=== PATIENT | female | born 1940 | race Caucasian/White ===

== ENCOUNTER 2020-08-03 11:17 | Inpatient (IN) | payer MEDICARE, BC ==
[2020-08-03] MEDS: Acetaminophen 325 MG TAB PO SCH ×2 (14:12→21:14)
[2020-08-03] MEDS: Ibuprofen 200 MG TAB PO SCH ×2 (14:13→21:16)
[2020-08-03] MEDS: traMADol HCl 50 MG TAB PO SCH ×2 (14:13→21:14)
[2020-08-03] MEDS ORDERED: Gabapentin 100 MG CAP PO SCH ×3 (15:00→21:00)
[2020-08-03] MEDS ORDERED: traMADol HCl 50 MG TAB PO SCH (18:00)
[2020-08-03] MEDS: DULoxetine 30 MG CAP PO SCH (21:16)
[2020-08-03] MEDS: Nitrofurantoin Monohyd/M-Cryst 100 MG CAP PO SCH (21:16)
[2020-08-03] MEDS: Aspirin 81 mg Enteric Coated Tablet PO SCH (21:16)
[2020-08-03] MEDS: Melatonin 3 MG TAB PO PRN (22:13)
[2020-08-04] MEDS: Acetaminophen 325 MG TAB PO SCH ×4 (02:08→20:19)
[2020-08-04] MEDS: traMADol HCl 50 MG TAB PO SCH ×4 (02:09→20:19)
[2020-08-04] MEDS: Levothyroxine Sodium 125 MCG TAB PO SCH (06:29)
[2020-08-04] MEDS: Ibuprofen 200 MG TAB PO SCH ×3 (06:29→21:18)
[2020-08-04] MEDS: Aspirin 81 mg Enteric Coated Tablet PO SCH ×2 (08:14→20:20)
[2020-08-04] MEDS: Nitrofurantoin Monohyd/M-Cryst 100 MG CAP PO SCH ×2 (08:14→20:20)
[2020-08-04] MEDS: Polyethylene Glycol 3350 17 GM Packet PO SCH (08:16)
[2020-08-04] MEDS: Amlodipine 5 MG TAB PO SCH (10:56)
[2020-08-04] MEDS: Lisinopril 20 MG TAB PO SCH (10:56)
[2020-08-04] MEDS: DULoxetine 30 MG CAP PO SCH (20:20)
[2020-08-04] MEDS: Melatonin 3 MG TAB PO PRN (20:20)
[2020-08-05] MEDS: traMADol HCl 50 MG TAB PO SCH ×4 (02:05→20:47)
[2020-08-05] MEDS: Acetaminophen 325 MG TAB PO SCH ×5 (02:05→20:46)
[2020-08-05] MEDS: Levothyroxine Sodium 125 MCG TAB PO SCH (05:14)
[2020-08-05] MEDS: Ibuprofen 200 MG TAB PO SCH ×4 (05:14→21:07)
[2020-08-05] MEDS: Aspirin 81 mg Enteric Coated Tablet PO SCH ×2 (08:33→20:47)
[2020-08-05] MEDS: Lisinopril 20 MG TAB PO SCH ×2 (08:34→11:17)
[2020-08-05] MEDS: Nitrofurantoin Monohyd/M-Cryst 100 MG CAP PO SCH ×2 (08:34→20:48)
[2020-08-05] MEDS: Amlodipine 5 MG TAB PO SCH ×2 (08:34→11:18)
[2020-08-05] MEDS: Polyethylene Glycol 3350 17 GM Packet PO SCH (08:36)
[2020-08-05] MEDS ORDERED: Senokot S 8.6-50 MG TAB PO SCH ×2 (13:15→21:00)
[2020-08-05] MEDS ORDERED: Ondansetron ODT 4 MG TAB PO PRN (13:41)
[2020-08-05] MEDS ORDERED: Bisacodyl 10 MG SUPP PR PRN (13:41)
[2020-08-05] MEDS: DULoxetine 30 MG CAP PO SCH (20:48)
[2020-08-05] MEDS: Docusate 100 MG CAP PO SCH (20:48)
[2020-08-05] MEDS: Melatonin 3 MG TAB PO PRN (20:50)
[2020-08-06] MEDS: Acetaminophen 325 MG TAB PO SCH ×4 (03:35→20:00)
[2020-08-06] MEDS: traMADol HCl 50 MG TAB PO SCH ×4 (03:36→19:58)
[2020-08-06] MEDS: Ibuprofen 200 MG TAB PO SCH ×3 (05:16→21:37)
[2020-08-06] MEDS: Levothyroxine Sodium 125 MCG TAB PO SCH (05:17)
[2020-08-06] MEDS: Polyethylene Glycol 3350 17 GM Packet PO SCH (08:51)
[2020-08-06] MEDS: Lisinopril 20 MG TAB PO SCH (08:52)
[2020-08-06] MEDS: Docusate 100 MG CAP PO SCH ×2 (08:52→20:01)
[2020-08-06] MEDS: Nitrofurantoin Monohyd/M-Cryst 100 MG CAP PO SCH (08:52)
[2020-08-06] MEDS: Amlodipine 5 MG TAB PO SCH (08:52)
[2020-08-06] MEDS: Aspirin 81 mg Enteric Coated Tablet PO SCH ×2 (08:53→20:02)
[2020-08-06] MEDS: DULoxetine 30 MG CAP PO SCH (20:01)
[2020-08-07] MEDS: Acetaminophen 325 MG TAB PO SCH ×4 (04:32→21:34)
[2020-08-07] MEDS: traMADol HCl 50 MG TAB PO SCH ×4 (04:33→21:34)
[2020-08-07] MEDS: Ibuprofen 200 MG TAB PO SCH ×3 (05:21→21:29)
[2020-08-07] MEDS: Levothyroxine Sodium 125 MCG TAB PO SCH (05:23)
[2020-08-07] MEDS: Lisinopril 20 MG TAB PO SCH (09:37)
[2020-08-07] MEDS: Polyethylene Glycol 3350 17 GM Packet PO SCH (09:37)
[2020-08-07] MEDS: Aspirin 81 mg Enteric Coated Tablet PO SCH ×2 (09:37→22:27)
[2020-08-07] MEDS: Docusate 100 MG CAP PO SCH ×3 (09:37→22:27)
[2020-08-07] MEDS: Amlodipine 5 MG TAB PO SCH (09:38)
[2020-08-07] MEDS ORDERED: Ondansetron ODT 4 MG TAB PO PRN (21:11)
[2020-08-07] MEDS ORDERED: Bisacodyl 10 MG SUPP PR PRN (21:12)
[2020-08-07] MEDS: DULoxetine 30 MG CAP PO SCH ×2 (21:27→22:27)
[2020-08-07] MEDS ORDERED: traMADol HCl 50 MG TAB PO SCH (21:30)
[2020-08-07] MEDS ORDERED: Acetaminophen 325 MG TAB PO SCH (21:30)
[2020-08-07] MEDS ORDERED: Aspirin 81 mg Enteric Coated Tablet PO SCH (22:45)
[2020-08-08] MEDS: Acetaminophen 325 MG TAB PO SCH ×4 (02:09→19:39)
[2020-08-08] MEDS: traMADol HCl 50 MG TAB PO SCH ×4 (02:10→19:37)
[2020-08-08] MEDS: Ibuprofen 200 MG TAB PO SCH ×3 (05:11→22:05)
[2020-08-08] MEDS: Levothyroxine Sodium 125 MCG TAB PO SCH (05:12)
[2020-08-08 05:28] LABS: #Basophils 0.1 thou/uL (0.0-0.2); #Eosinphils 0.7 thou/uL (0.0-0.7); #Lymphocytes 2.3 thou/uL (1.20-3.40); #Monocytes 0.9 thou/uL (0.11-0.59); %Basophils 1.1 % (0.0-1.0); %Eosinophils 7.7 % (0.0-10.0); %Lymphocytes 25.6 % (21.0-51.0); %Monocytes 10.3 % (0.0-10.0); %Neutrophils 55.3 % (42.0-75.0); Hemoglobin 7.9 g/dL (12.0-16.0); Mean Corpuscular HGB CONC 31.5 g/dL (32.0-36.0); Mean Corpuscular Hemoglobin 28.1 pg (27.0-31.0); Mean Corpuscular Volume 89.3 fL (78.0-98.0); Mean Platelet Volume 5.9 fL (7.4-10.4); Platelet Count 336 thou/uL (130-400); RBC Distribution Width 14.5 % (11.5-14.5); Red Blood Cell (RBC) Count 2.83 mill/uL (4.20-5.40); White Blood Cell (WBC) Count 9.1 thou/uL (4.8-10.8)
[2020-08-08 05:54] LABS: Anion Gap 12 mmol/L (10-20); BUN (Urea Nitrogen) 20 mg/dL (9.8-20.1); Calc. Creatinine Clearance 41 mL/min (70-130); Carbon Dioxide 26 mmol/L (23-31); Chloride 102 mmol/L (98-107); Glucose 94 mg/dL (83-110); Potassium 4.1 mmol/L (3.5-5.1); Sodium 136 mmol/L (136-145)
[2020-08-08] MEDS ORDERED: Ferrous Sulfate 325 MG TAB PO SCH (08:00)
[2020-08-08] MEDS: Aspirin 81 mg Enteric Coated Tablet PO SCH ×2 (08:14→19:37)
[2020-08-08] MEDS: Polyethylene Glycol 3350 17 GM Packet PO SCH (08:14)
[2020-08-08] MEDS: Docusate 100 MG CAP PO SCH ×2 (08:14→19:37)
[2020-08-08] MEDS: Lisinopril 20 MG TAB PO SCH (08:14)
[2020-08-08] MEDS: Amlodipine 5 MG TAB PO SCH (08:14)
[2020-08-08] MEDS: Ferrous Sulfate 325 MG TAB PO SCH (16:49)
[2020-08-08] MEDS: DULoxetine 30 MG CAP PO SCH (19:38)
[2020-08-08] MEDS: Melatonin 3 MG TAB PO PRN (21:51)
[2020-08-09] MEDS: Acetaminophen 325 MG TAB PO SCH ×4 (02:10→20:00)
[2020-08-09] MEDS: traMADol HCl 50 MG TAB PO SCH ×4 (02:10→19:59)
[2020-08-09] MEDS: Ibuprofen 200 MG TAB PO SCH ×3 (05:25→22:01)
[2020-08-09] MEDS: Amlodipine 5 MG TAB PO SCH (09:39)
[2020-08-09] MEDS: Docusate 100 MG CAP PO SCH ×2 (09:39→20:00)
[2020-08-09] MEDS: Polyethylene Glycol 3350 17 GM Packet PO SCH (09:39)
[2020-08-09] MEDS: Aspirin 81 mg Enteric Coated Tablet PO SCH ×2 (09:39→20:00)
[2020-08-09] MEDS: Lisinopril 20 MG TAB PO SCH (09:40)
[2020-08-09] MEDS ORDERED: Ferrous Sulfate 325 MG TAB PO SCH (10:15)
[2020-08-09] MEDS: Ferrous Sulfate 325 MG TAB PO SCH ×2 (10:15→17:44)
[2020-08-09] MEDS: Levothyroxine Sodium 125 MCG TAB PO SCH (12:55)
[2020-08-09] MEDS: Melatonin 3 MG TAB PO PRN (19:59)
[2020-08-09] MEDS: DULoxetine 30 MG CAP PO SCH (20:00)
[2020-08-10] MEDS: traMADol HCl 50 MG TAB PO SCH ×4 (02:09→20:02)
[2020-08-10] MEDS: Acetaminophen 325 MG TAB PO SCH ×4 (02:10→20:03)
[2020-08-10] MEDS: Levothyroxine Sodium 125 MCG TAB PO SCH (05:17)
[2020-08-10] MEDS: Ibuprofen 200 MG TAB PO SCH ×3 (05:17→22:24)
[2020-08-10] MEDS: Polyethylene Glycol 3350 17 GM Packet PO SCH (08:29)
[2020-08-10] MEDS: Amlodipine 5 MG TAB PO SCH (08:29)
[2020-08-10] MEDS: Ferrous Sulfate 325 MG TAB PO SCH ×2 (08:31→17:08)
[2020-08-10] MEDS: Aspirin 81 mg Enteric Coated Tablet PO SCH ×2 (08:31→20:03)
[2020-08-10] MEDS: Docusate 100 MG CAP PO SCH ×2 (08:31→20:03)
[2020-08-10] MEDS: Lisinopril 20 MG TAB PO SCH (08:31)
[2020-08-10] MEDS: DULoxetine 30 MG CAP PO SCH (20:03)
[2020-08-10] MEDS: Melatonin 3 MG TAB PO PRN (20:03)
[2020-08-11] MEDS: Acetaminophen 325 MG TAB PO SCH ×4 (01:04→20:10)
[2020-08-11] MEDS: traMADol HCl 50 MG TAB PO SCH ×4 (01:05→20:10)
[2020-08-11] MEDS: Ibuprofen 200 MG TAB PO SCH ×3 (05:13→21:43)
[2020-08-11] MEDS: Levothyroxine Sodium 125 MCG TAB PO SCH (05:14)
[2020-08-11] MEDS: Polyethylene Glycol 3350 17 GM Packet PO SCH (08:30)
[2020-08-11] MEDS: Amlodipine 5 MG TAB PO SCH (08:31)
[2020-08-11] MEDS: Docusate 100 MG CAP PO SCH ×2 (08:31→20:10)
[2020-08-11] MEDS: Aspirin 81 mg Enteric Coated Tablet PO SCH ×2 (08:31→20:10)
[2020-08-11] MEDS: Ferrous Sulfate 325 MG TAB PO SCH ×2 (08:31→17:10)
[2020-08-11] MEDS: Lisinopril 20 MG TAB PO SCH (08:31)
[2020-08-11] MEDS: Melatonin 3 MG TAB PO PRN (20:10)
[2020-08-11] MEDS: DULoxetine 30 MG CAP PO SCH (20:11)
[2020-08-12] MEDS: Acetaminophen 325 MG TAB PO SCH ×2 (02:30→09:42)
[2020-08-12] MEDS: traMADol HCl 50 MG TAB PO SCH ×2 (02:31→09:41)
[2020-08-12] MEDS: Levothyroxine Sodium 125 MCG TAB PO SCH (05:36)
[2020-08-12] MEDS: Ibuprofen 200 MG TAB PO SCH (05:36)
[2020-08-12] MEDS: Ferrous Sulfate 325 MG TAB PO SCH ×2 (09:39→17:27)
[2020-08-12] MEDS: Amlodipine 5 MG TAB PO SCH (09:39)
[2020-08-12] MEDS: Aspirin 81 mg Enteric Coated Tablet PO SCH ×2 (09:39→20:54)
[2020-08-12] MEDS: Docusate 100 MG CAP PO SCH ×2 (09:40→20:55)
[2020-08-12] MEDS: Lisinopril 20 MG TAB PO SCH (09:40)
[2020-08-12] MEDS: Polyethylene Glycol 3350 17 GM Packet PO SCH (09:40)
[2020-08-12] MEDS ORDERED: Acetaminophen 325 MG TAB PO PRN (10:11)
[2020-08-12] MEDS: DULoxetine 30 MG CAP PO SCH (20:55)
[2020-08-12] MEDS: Melatonin 3 MG TAB PO PRN (20:55)
[2020-08-12] MEDS: Ibuprofen 200 MG TAB PO PRN (21:56)
[2020-08-13] MEDS: Levothyroxine Sodium 125 MCG TAB PO SCH (05:28)
[2020-08-13] MEDS: Lisinopril 5 MG TAB PO SCH (08:54)
[2020-08-13] MEDS: Polyethylene Glycol 3350 17 GM Packet PO SCH (08:54)
[2020-08-13] MEDS: Ferrous Sulfate 325 MG TAB PO SCH ×2 (08:54→17:10)
[2020-08-13] MEDS: Amlodipine 5 MG TAB PO SCH (08:54)
[2020-08-13] MEDS: Docusate 100 MG CAP PO SCH ×2 (08:54→20:51)
[2020-08-13] MEDS: Aspirin 81 mg Enteric Coated Tablet PO SCH ×2 (08:54→20:51)
[2020-08-13] MEDS: traMADol HCl 50 MG TAB PO PRN (14:34)
[2020-08-13] MEDS: DULoxetine 30 MG CAP PO SCH (20:51)
[2020-08-13] MEDS: Melatonin 3 MG TAB PO PRN (20:52)
[2020-08-14] MEDS: Levothyroxine Sodium 125 MCG TAB PO SCH (05:28)
[2020-08-14] MEDS: Polyethylene Glycol 3350 17 GM Packet PO SCH (08:15)
[2020-08-14] MEDS: Lisinopril 5 MG TAB PO SCH (08:16)
[2020-08-14] MEDS: Aspirin 81 mg Enteric Coated Tablet PO SCH ×2 (08:16→20:08)
[2020-08-14] MEDS: Ferrous Sulfate 325 MG TAB PO SCH ×2 (08:16→17:42)
[2020-08-14] MEDS: Docusate 100 MG CAP PO SCH ×2 (08:16→20:09)
[2020-08-14] MEDS: Amlodipine 5 MG TAB PO SCH (08:16)
[2020-08-14 08:43] VITALS: BMI 24.3
[2020-08-14] MEDS: Ibuprofen 200 MG TAB PO PRN (10:26)
[2020-08-14] MEDS: Melatonin 3 MG TAB PO PRN (20:08)
[2020-08-14] MEDS: DULoxetine 30 MG CAP PO SCH (20:09)
[2020-08-15] MEDS: Ibuprofen 200 MG TAB PO PRN (00:33)
[2020-08-15] MEDS: Levothyroxine Sodium 125 MCG TAB PO SCH (05:24)
[2020-08-15 05:47] LABS: #Basophils 0.1 thou/uL (0.0-0.2); #Eosinphils 0.8 thou/uL (0.0-0.7); #Lymphocytes 2.1 thou/uL (1.20-3.40); #Monocytes 0.9 thou/uL (0.11-0.59); #Neutrophils 4.4 thou/uL (1.40-6.50); %Basophils 1.8 % (0.0-1.0); %Eosinophils 9.5 % (0.0-10.0); %Lymphocytes 24.8 % (21.0-51.0); %Neutrophils 52.9 % (42.0-75.0); Anisocytosis SLIGHT = 6-15 cells (100X) (0-5/hpf); Hemoglobin 7.3 g/dL (12.0-16.0); MDiff Complete? YES; Mean Corpuscular HGB CONC 29.8 g/dL (32.0-36.0); Mean Corpuscular Hemoglobin 28.6 pg (27.0-31.0); Mean Corpuscular Volume 96.1 fL (78.0-98.0); Ovalocytes SLIGHT = 2-5 cells (100X) (0-1/hpf); Platelet Count 456 thou/uL (130-400); Platelet Morphology Comment Appears Increased; Red Blood Cell (RBC) Count 2.56 mill/uL (4.20-5.40); White Blood Cell (WBC) Count 8.3 thou/uL (4.8-10.8)
[2020-08-15] MEDS: Polyethylene Glycol 3350 17 GM Packet PO SCH (09:22)
[2020-08-15] MEDS: Aspirin 81 mg Enteric Coated Tablet PO SCH ×2 (09:22→20:13)
[2020-08-15] MEDS: Lisinopril 5 MG TAB PO SCH (09:22)
[2020-08-15] MEDS: Ferrous Sulfate 325 MG TAB PO SCH ×2 (09:22→17:39)
[2020-08-15] MEDS: Docusate 100 MG CAP PO SCH ×2 (09:22→20:13)
[2020-08-15] MEDS: Amlodipine 5 MG TAB PO SCH (09:23)
[2020-08-15] MEDS: traMADol HCl 50 MG TAB PO PRN (11:06)
[2020-08-15] MEDS: DULoxetine 30 MG CAP PO SCH (20:13)
[2020-08-16] MEDS: Levothyroxine Sodium 125 MCG TAB PO SCH (05:22)
[2020-08-16] MEDS: Aspirin 81 mg Enteric Coated Tablet PO SCH ×2 (08:35→21:32)
[2020-08-16] MEDS: Amlodipine 5 MG TAB PO SCH (08:35)
[2020-08-16] MEDS: Ferrous Sulfate 325 MG TAB PO SCH ×2 (08:35→17:28)
[2020-08-16] MEDS: Docusate 100 MG CAP PO SCH ×2 (08:35→21:32)
[2020-08-16] MEDS: Polyethylene Glycol 3350 17 GM Packet PO SCH (08:35)
[2020-08-16] MEDS: Lisinopril 5 MG TAB PO SCH (08:36)
[2020-08-16] MEDS: DULoxetine 30 MG CAP PO SCH (21:32)
[2020-08-16] MEDS: Ibuprofen 200 MG TAB PO PRN (21:33)
[2020-08-16] MEDS: Melatonin 3 MG TAB PO PRN (21:34)
[2020-08-17] MEDS: Levothyroxine Sodium 125 MCG TAB PO SCH (06:04)
[2020-08-17] MEDS: Amlodipine 5 MG TAB PO SCH (08:54)
[2020-08-17] MEDS: Aspirin 81 mg Enteric Coated Tablet PO SCH ×2 (08:54→20:25)
[2020-08-17] MEDS: Docusate 100 MG CAP PO SCH ×2 (08:54→20:25)
[2020-08-17] MEDS: Ferrous Sulfate 325 MG TAB PO SCH ×2 (08:54→17:16)
[2020-08-17] MEDS: Lisinopril 5 MG TAB PO SCH (08:54)
[2020-08-17] MEDS: Polyethylene Glycol 3350 17 GM Packet PO SCH (08:56)
[2020-08-17] MEDS: Ibuprofen 200 MG TAB PO PRN (20:25)
[2020-08-17] MEDS: DULoxetine 30 MG CAP PO SCH (20:25)
[2020-08-17] MEDS: Melatonin 3 MG TAB PO PRN (20:26)
[2020-08-18] MEDS: Levothyroxine Sodium 125 MCG TAB PO SCH (06:01)
[2020-08-18] MEDS: Polyethylene Glycol 3350 17 GM Packet PO SCH (08:36)
[2020-08-18] MEDS: Docusate 100 MG CAP PO SCH ×2 (08:36→21:36)
[2020-08-18] MEDS: Lisinopril 5 MG TAB PO SCH (08:36)
[2020-08-18] MEDS: Ferrous Sulfate 325 MG TAB PO SCH ×2 (08:36→17:10)
[2020-08-18] MEDS: Amlodipine 5 MG TAB PO SCH (08:36)
[2020-08-18] MEDS: Aspirin 81 mg Enteric Coated Tablet PO SCH ×2 (08:36→21:36)
[2020-08-18] MEDS: Melatonin 3 MG TAB PO PRN (21:36)
[2020-08-18] MEDS: DULoxetine 30 MG CAP PO SCH (21:36)
[2020-08-18] MEDS: Ibuprofen 200 MG TAB PO PRN (21:36)
[2020-08-19] MEDS: Levothyroxine Sodium 125 MCG TAB PO SCH (05:15)
[2020-08-19] MEDS: Polyethylene Glycol 3350 17 GM Packet PO SCH (08:10)
[2020-08-19] MEDS: Aspirin 81 mg Enteric Coated Tablet PO SCH ×2 (08:10→21:12)
[2020-08-19] MEDS: Amlodipine 5 MG TAB PO SCH (08:11)
[2020-08-19] MEDS: Docusate 100 MG CAP PO SCH ×2 (08:11→21:12)
[2020-08-19] MEDS: Lisinopril 5 MG TAB PO SCH (08:11)
[2020-08-19] MEDS: Ferrous Sulfate 325 MG TAB PO SCH ×2 (08:11→17:24)
[2020-08-19] MEDS: Melatonin 3 MG TAB PO PRN (21:13)
[2020-08-19] MEDS: DULoxetine 30 MG CAP PO SCH (21:13)
[2020-08-19] MEDS: Ibuprofen 200 MG TAB PO PRN (21:13)
[2020-08-20] MEDS: Levothyroxine Sodium 125 MCG TAB PO SCH (05:37)
[2020-08-20] MEDS: Ferrous Sulfate 325 MG TAB PO SCH ×2 (08:04→17:39)
[2020-08-20] MEDS: Docusate 100 MG CAP PO SCH ×2 (09:02→20:14)
[2020-08-20] MEDS: Amlodipine 5 MG TAB PO SCH (09:02)
[2020-08-20] MEDS: Aspirin 81 mg Enteric Coated Tablet PO SCH ×2 (09:02→20:14)
[2020-08-20] MEDS: Polyethylene Glycol 3350 17 GM Packet PO SCH (09:03)
[2020-08-20] MEDS: Lisinopril 5 MG TAB PO SCH (09:03)
[2020-08-20] MEDS: DULoxetine 30 MG CAP PO SCH (20:14)
[2020-08-20] MEDS: Melatonin 3 MG TAB PO PRN (20:14)
[2020-08-21] MEDS: Levothyroxine Sodium 125 MCG TAB PO SCH (05:19)
[2020-08-21] MEDS: Amlodipine 5 MG TAB PO SCH (08:34)
[2020-08-21] MEDS: Ferrous Sulfate 325 MG TAB PO SCH ×2 (08:34→17:10)
[2020-08-21] MEDS: Aspirin 81 mg Enteric Coated Tablet PO SCH ×2 (08:34→21:43)
[2020-08-21] MEDS: Docusate 100 MG CAP PO SCH ×2 (08:34→21:42)
[2020-08-21] MEDS: Polyethylene Glycol 3350 17 GM Packet PO SCH (08:35)
[2020-08-21] MEDS: Lisinopril 5 MG TAB PO SCH (08:35)
[2020-08-21] MEDS: Melatonin 3 MG TAB PO PRN (21:42)
[2020-08-21] MEDS: Ibuprofen 200 MG TAB PO PRN (21:42)
[2020-08-21] MEDS: DULoxetine 30 MG CAP PO SCH (21:43)
[2020-08-22] MEDS: Levothyroxine Sodium 125 MCG TAB PO SCH (05:32)
[2020-08-22] MEDS: Ferrous Sulfate 325 MG TAB PO SCH ×2 (08:24→17:07)
[2020-08-22] MEDS: Polyethylene Glycol 3350 17 GM Packet PO SCH (08:24)
[2020-08-22] MEDS: Docusate 100 MG CAP PO SCH ×2 (08:24→20:42)
[2020-08-22] MEDS: Amlodipine 5 MG TAB PO SCH (08:24)
[2020-08-22] MEDS: Lisinopril 5 MG TAB PO SCH (08:24)
[2020-08-22] MEDS: Aspirin 81 mg Enteric Coated Tablet PO SCH ×2 (08:24→20:42)
[2020-08-22] MEDS: DULoxetine 30 MG CAP PO SCH (20:42)
[2020-08-22] MEDS: Melatonin 3 MG TAB PO PRN (20:43)
[2020-08-23] MEDS: Levothyroxine Sodium 125 MCG TAB PO SCH (05:45)
[2020-08-23] MEDS: Ferrous Sulfate 325 MG TAB PO SCH (08:32)
[2020-08-23] MEDS: Aspirin 81 mg Enteric Coated Tablet PO SCH (08:32)
[2020-08-23] MEDS: Lisinopril 5 MG TAB PO SCH (08:32)
[2020-08-23] MEDS: Docusate 100 MG CAP PO SCH (08:32)
[2020-08-23] MEDS: Polyethylene Glycol 3350 17 GM Packet PO SCH (08:32)
[2020-08-23] MEDS: Amlodipine 5 MG TAB PO SCH (08:32)
[2020-08-23 14:22] VITALS: BP 127/73; TEMP 98.6
== END 2020-08-23 16:20 | disposition home or self-care (01) | DRG 560 ==
LOC: MADMS 11:17 → UNDODISIN 08-07 14:14 → MADMS 08-19 16:32
PROVIDERS: ADMIT Family Medicine; ATTEND Family Medicine
DX: Z47.1 Aftercare following joint replacement surgery (principal); D62 Acute posthemorrhagic anemia; N30.00 Acute cystitis without hematuria; N99.89 Other postprocedural complications and disorders of genitourinary system; R33.8 Other retention of urine; R53.81 Other malaise; M25.30 Other instability, unspecified joint; M12.9 Arthropathy, unspecified; R26.89 Other abnormalities of gait and mobility; I10 Essential (primary) hypertension; E03.9 Hypothyroidism, unspecified; G30.9 Alzheimer's disease, unspecified; R41.0 Disorientation, unspecified; F02.80 Dementia in other diseases classified elsewhere, unspecified severity, without behavioral disturbance, psychotic disturbance, mood disturbance, and anxiety; F17.210 Nicotine dependence, cigarettes, uncomplicated; G47.00 Insomnia, unspecified; L89.152 Pressure ulcer of sacral region, stage 2; S31.811A Laceration without foreign body of right buttock, initial encounter; Z66 Do not resuscitate; Z79.82 Long term (current) use of aspirin; Z79.899 Other long term (current) drug therapy; Z96.641 Presence of right artificial hip joint; Z90.710 Acquired absence of both cervix and uterus; Z98.890 Other specified postprocedural states; X58.XXXA Exposure to other specified factors, initial encounter
CPT/HCPCS: 36415; 80048; 85025; Q0162

== ENCOUNTER 2022-09-26 07:38 | Emergency (ER) | payer BC, MEDICARE ==
[2022-09-26 09:18] LABS: Bilirubin Small (Negative); Blood, Urine Large (Negative); Glucose, Urine (Dipstick) Negative (Negative); Ketone, Urine Negative (Negative); Leukocyte Large (Negative); Nitrite Negative (Negative); Protein, Urine (Dipstick) > or equal to 300 mg/dL (Neg-Trace); pH, Urine 7.5 (5.0-9.0)
[2022-09-26 09:19] LABS: Clarity Cloudy (Clear)
[2022-09-26 09:27] LABS: Bacteria/HPF 2+ HPF (None Seen); CAUTI Indications for Culture Alt mental st,lethar; RBC/HPF Greater than 50 HPF (0-3); Squamous Epithelial 0-3 HPF (0-3); Urine Culture Reflex Yes Yes; WBC/HPF Greater Than 50 HPF (0-3)
[2022-09-26 10:37] LABS: ALT (SGPT) 21 U/L (8-55); AST (SGOT) 23 U/L (5-34); Albumin 2.2 g/dL (3.4-4.8); Alkaline Phosphatase 124 U/L (40-110); Anion Gap 14 mmol/L (10-20); BUN (Urea Nitrogen) 70 mg/dL (9.8-20.1); Bilirubin, Total 0.4 mg/dL (0.2-1.2); CK (CPK) 14 U/L (29-168); Calc. Creatinine Clearance 0 mL/min (70-130); Calcium 7.4 mg/dL (7.8-10.44); Carbon Dioxide 17 mmol/L (23-31); Chloride 108 mmol/L (98-107); Estimated GFR 14; Globulin 2.4 g/dL (2.4-3.5); Glucose 89 mg/dL (83-110); Magnesium 2.4 mg/dL (1.6-2.6); Potassium 5.7 mmol/L (3.5-5.1); Protein, Total 4.6 g/dL (5.8-8.1); Sodium 133 mmol/L (136-145)
[2022-09-26 10:39] LABS: Base Excess-Venous -9.3 mmol/L (-2.0 to 3.0); Bicarbonate (HCO3v) 17.4 mmol/L (22.0-28.0); CO2 Tension (PvCO2) 39.9 mmHg (42.0-51.0); Calcium, Ionized 1.03 mmol/L (1.15-1.33); Chloride 108 mmol/L (98-107); Potassium 5.9 mmol/L (3.5-5.1); Sodium 133 mmol/L (138-145); T. Carbon Dioxide 18.6 mmol/L (22.0-28.0); vO2 Saturation-calc 99.6 % (60.0-85.0)
[2022-09-26 10:42] LABS: Band 4 % (5-11); Eosinophils 2 % (0-10); Hemoglobin 11.3 g/dL (12.0-16.0); Lymphocytes 3 % (21-51); MDiff Complete? YES; Mean Corpuscular HGB CONC 31.6 g/dL (32.0-36.0); Mean Corpuscular Hemoglobin 28.1 pg (27.0-31.0); Mean Platelet Volume 7.1 fL (7.4-10.4); Neutrophil 85 % (42-75); Platelet Adequacy Comment Appears Adequate; Platelet Count 352 10x3/uL (130-400); RBC Distribution Width 15.8 % (11.5-14.5); Reactive Lymphocytes 6 % (0-10); Red Blood Cell (RBC) Count 4.01 mill/uL (4.20-5.40); White Blood Cell (WBC) Count 13.6 10x3/uL (4.8-10.8)
[2022-09-26] MEDS ORDERED: Sodium Chloride 0.9% 100 ML ONE (10:50)
[2022-09-26] MEDS ORDERED: Sodium Chloride 0.9% 1,000 ML ONE (10:50)
[2022-09-26] MEDS ORDERED: cefTRIAXone (ROCEPHIN) 1 GM VIAL ONE (10:50)
[2022-09-26 10:54] LABS: CKMB 2.9 ng/mL (0-6.6)
== END 2022-09-26 18:09 | disposition home or self-care (01) ==
LOC: MADERS 07:38
DX: N30.91 Cystitis, unspecified with hematuria (principal); N17.9 Acute kidney failure, unspecified; E86.0 Dehydration; F03.90 Unspecified dementia, unspecified severity, without behavioral disturbance, psychotic disturbance, mood disturbance, and anxiety; K56.41 Fecal impaction; E87.5 Hyperkalemia; K52.89 Other specified noninfective gastroenteritis and colitis; E03.9 Hypothyroidism, unspecified; I10 Essential (primary) hypertension; F17.210 Nicotine dependence, cigarettes, uncomplicated; Z79.899 Other long term (current) drug therapy; Z79.82 Long term (current) use of aspirin
CPT/HCPCS: 36416; 51702; 71045; 71250; 74177; 80053; 81001; 82330; 82550; 82553; 82803; 83605; 83735; 84484; 85025; 87040; 87086; 93005; 94760; 96361; 96365; J0696; J3490; J7050